=== PATIENT | male | born 1955 | race Two or more races ===

== ENCOUNTER 2017-05-02 00:28 | Emergency (ER) | payer OTHER ==
[~2017-05-02] VITALS: Ht 167.6 cm; Wt 76.0 kg
[~2017-05-02 00:28] MED LIST: ALBUTEROL; IMITREX; PREDNISONE
[2017-05-02] MEDS ORDERED: SODIUM CHLORIDE 0.9% 1,000 ML IV ONE (01:18)
[2017-05-02] MEDS ORDERED: ONDANSETRON HCL 4MG/2ML VIAL IV STA (01:18)
[2017-05-02] MEDS ORDERED: MORPHINE SULFATE 4 MG/ML CPJ (NOT FOR IM USE) IV STA (01:18)
[2017-05-02 01:40] LABS: CHLORIDE 103 mEq/L (98-107)
[2017-05-02 01:45] LABS: CLARITY URINE CLEAR (CLEAR); COLOR URINE DARK YELLOW (YELLOW); GLUCOSE URINE NEGATIVE (NEGATIVE); KETONES URINE 1+ (NEGATIVE); LEUKOCYTE ESTERASE URINE NEGATIVE (NEGATIVE); NITRITE URINE NEGATIVE (NEGATIVE); OCCULT BLOOD URINE 3+ (NEGATIVE); PROTEIN URINE NEGATIVE (NEGATIVE); SPECIFIC GRAVITY URINE 1.021 (1.005-1.030)
[2017-05-02 01:46] LABS: BASOPHILS % 0.3 % (0.0-2.0); EOSINOPHILS % 0.6 % (0.0-5.0); HEMATOCRIT. 44.8 % (42.0-52.0); HEMOGLOBIN. 15.9 g/dL (14.0-18.0); MEAN CORPUSCULAR HEMOGLOBIN 32.1 pg (28.0-32.0); MEAN CORPUSCULAR VOLUME 90.4 fL (80.0-94.0); MEAN PLATELET VOLUME 8.2 fl (7.4-10.4); NEUTROPHILS % 79.1 % (40.0-76.0); PLATELET 169 x1000/uL (130-400); RED BLOOD CELL COUNT 4.96 mill/uL (4.7-6.1); RED CELL DISTRIBUTION WIDTH 12.9 % (11.6-14.6)
[2017-05-02 01:49] LABS: CARBON DIOXIDE 26 mEq/L (21-32)
[2017-05-02 06:32] VITALS: BP 140/90
[2017-05-02] MEDS ORDERED: SODIUM CHLORIDE 0.9% 10ML VIAL ONE (09:28)
[2017-05-02] MEDS ORDERED: IOHEXOL-300 100 ML BOTTLE ONE (09:28)
== END 2017-05-02 06:33 | disposition home or self-care (01) ==
LOC: ER 00:28
DX: R10.32 Left lower quadrant pain (principal); J45.909 Unspecified asthma, uncomplicated
CPT/HCPCS: 36415; 74177; 80053; 81001; 83690; 85025; 96361; 96374; 96375; 99285; A4216; J2270; J2405; J7030; Q9967; Z7610